=== PATIENT | female | born 1990 | race African-American/Black ===

== ENCOUNTER 2024-05-07 17:12 | Observation (INO) ==
[2024-05-07 17:38] LABS: ABS Basophils 0.1 10^3/uL (0.0-0.1); ABS Eosinophils 0.1 10^3/uL (0.0-0.5); ABS Lymphocytes 2.2 10^3/uL (1.0-4.8); ABS Monocytes 0.8 10^3/uL (0.0-0.9); ABS Neutrophils 7.3 10^3/uL (1.5-7.6); ABS Nucleated RBC 0.01 10^3/ul; Eosinophil % 0.8 %; Hematocrit 39.1 % (35-45); Hemoglobin 13.7 g/dL (11.5-14.3); Lymphocyte % 20.9 %; Mean Corpuscular Hemoglobin 29.2 pg (27-33); Mean Corpuscular Hgb Conc 34.9 g/dL (31-36); Mean Corpuscular Volume 83.6 fL (80-97); Mean Platelet Volume 9.6 fL (7.5-11.2); Platelet Count 295 10^3/uL (150-450); Red Blood Count 4.68 10^6/uL (3.63-4.92); Red Cell Distribution Width 14.2 % (12-17); White Blood Count 10.4 10^3/uL (3.8-11.8)
[2024-05-07 18:01] LABS: High Sens Troponin Baseline 19 pg/mL (<15)
[2024-05-07 18:13] LABS: INR 0.95 (0.83-1.13)
[2024-05-07 18:32] LABS: AST 22 U/L (13-39); Potassium 3.7 mmol/L (3.5-5.0)
[2024-05-07 18:33] LABS: ALT 21 U/L (7-52); Albumin/Globulin Ratio 1.2 (1-3); Alkaline Phosphatase 82 U/L (35-149); Anion Gap 10 mmol/L (2-16); Blood Urea Nitrogen 16 mg/dL (6-24); CO2 Carbon Dioxide 23 mmol/L (22-32); Calcium 9.4 mg/dL (8.6-10.3); Chloride 105 mmol/L (101-111); Creatinine, Serum 1.26 mg/dL (0.51-0.95); Globulin 3.4 g/dL (2-4); Glucose 168 mg/dL (70-100); Sodium 138 mmol/L (135-145); Total Bilirubin 0.3 mg/dL (0.2-1.0); Total Protein 7.4 g/dL (6.4-8.9); eGFR CKD-EPI 58.5 (>60)
[2024-05-07 18:53] LABS: HCG Pregnancy < 0.60 mIU/mL
[2024-05-07 19:29] LABS: High Sensitivity Troponin 1 Hr 31 pg/mL (<15)
[2024-05-07 20:30] LABS: High Sensitivity Troponin 3 Hr 37 pg/mL (<15)
[2024-05-07 23:15] LABS: C Reactive Protein 9.01 mg/L (<8.01)
[2024-05-08 05:04] LABS: ABS Eosinophils 0.1 10^3/uL (0.0-0.5); ABS Lymphocytes 2.7 10^3/uL (1.0-4.8); ABS Monocytes 0.9 10^3/uL (0.0-0.9); ABS Neutrophils 5.1 10^3/uL (1.5-7.6); Eosinophil % 1.4 %; Hematocrit 37.3 % (35-45); Hemoglobin 12.8 g/dL (11.5-14.3); Lymphocyte % 30.8 %; Mean Corpuscular Hemoglobin 28.7 pg (27-33); Mean Corpuscular Hgb Conc 34.2 g/dL (31-36); Mean Corpuscular Volume 83.9 fL (80-97); Mean Platelet Volume 9.2 fL (7.5-11.2); Platelet Count 260 10^3/uL (150-450); Red Blood Count 4.44 10^6/uL (3.63-4.92); Red Cell Distribution Width 14.3 % (12-17); White Blood Count 8.8 10^3/uL (3.8-11.8)
[2024-05-08 05:59] LABS: Calcium 8.8 mg/dL (8.6-10.3); Creatinine, Serum 1.03 mg/dL (0.51-0.95); Magnesium 1.8 mg/dL (1.9-2.7); Potassium 3.7 mmol/L (3.5-5.0); eGFR CKD-EPI 74.6 (>60)
[2024-05-08] MEDS: Magnesium Sulfate 2 gm BAG 2 GM/50 ML BAG IVPB ONE (07:17)
[2024-05-08] MEDS: Sulfur Hexaflouride MICROSPHR 25 MG VIAL IV ONE (09:30)
[2024-05-08] MEDS ORDERED: Sulfur Hexaflouride MICROSPHR 25 MG VIAL ONE (09:36)
[2024-05-08 10:39] LABS: HDL Cholesterol 36.2 mg/dL
[2024-05-08] MEDS: NS 0.9% 1000 ml BAG 1,000 ML IV SCH (17:12)
[2024-05-08] MEDS ORDERED: fentaNYL 100 mcg/2 ml 50 MCG/ML VIAL IV SLOW PU ONE (17:16)
[2024-05-08] MEDS ORDERED: Midazolam 10 mg/10 ml VIAL 1 mg/ml 10 ml VIAL (10 mg) IV SLOW PU ONE (17:16)
[2024-05-09 05:59] LABS: Calcium 9.1 mg/dL (8.6-10.3); Creatinine, Serum 0.94 mg/dL (0.51-0.95); Magnesium 2.2 mg/dL (1.9-2.7); Potassium 3.8 mmol/L (3.5-5.0); eGFR CKD-EPI 83.2 (>60)
[2024-05-09] MEDS ORDERED: NS 0.9% 1000 ml BAG 1,000 ML IV SCH ×2 (08:00→10:45)
[2024-05-09] MEDS: Potassium Chlor 20 meq TAB.ER PO ONE (08:51)
[2024-05-09] MEDS ORDERED: Heparin 1,000 UNIT/ML 10 ml (10,000 UNITS) CATHLAB/DIALYSIS ONE (09:53)
[2024-05-09] MEDS ORDERED: VERAPAMIL 2.5 MG/ML 2 ML VIAL ** 5 mg/2 ml ONE (09:53)
[2024-05-09] MEDS ORDERED: Lidocaine 1% MPF 5 ML VIAL ONE (09:54)
[2024-05-09] MEDS ORDERED: Heparin 2 UNITS/ML 1000 mls 2,000 ML IV ONE (09:54)
[2024-05-09] MEDS ORDERED: nitroGLYCERIN DRIP 25,000 MCG/250 ML BTL ONE (09:54)
[2024-05-09] MEDS ORDERED: Iohexol 350 (CONTRAST) 100 ML PAK IV ONE (09:54)
[2024-05-09] MEDS ORDERED: fentaNYL 100 mcg/2 ml 50 MCG/ML VIAL ONE (09:55)
[2024-05-09] MEDS ORDERED: Midazolam 5 mg/5 ml VIAL 1 mg/ml 5 ml VIAL (5 mg) ONE (09:55)
[2024-05-09] MEDS: KCL 10 MEQ/50 ML IVPREMIX 10 MEQ/50 ML BAG IV SCH (10:47)
[2024-05-09 15:48] VITALS: BP 148/97
== END 2024-05-09 16:45 | disposition home or self-care (01) ==
LOC: EDHOLD 17:12 → ED 17:12 → SUATTDRO 21:38 → MEDTELE 05-08 16:25
PROVIDERS: ADMIT Hospitalist; ATTEND Hospitalist